=== PATIENT | female | born 1990 | race American Indian/Alaskan Native ===

== ENCOUNTER 2018-04-14 08:01 | Outpatient (CLI) | payer BC ==
--- NOTE | 2018-04-14 09:22 | Ultrasound Report ---
Right breast ultrasound: Periodic bloody nipple discharge for one year. Imaging of the retroareolar region demonstrates a 6 mm circumscribed echolucency at 3:00. No evidence of enlarged ducts. In the 5:00 location 4 cm from the nipple there is a heterogeneously hypoechoic circumscribed nodule measuring 6.1 mm which is slightly elongated. There is some question of mild shadowing. No internal flow with color imaging. No other findings. Impression: 1. Generally benign-appearing solid nodule in the 5:00 location. The mild shadowing does raise concern. 2. No definable source of bloody discharge. Recommendation: 1. Consider ultrasound-guided biopsy of solid nodule. Otherwise, six-month followup. 2. Ductogram if blood can be confidently expressed. Otherwise, MR scan may be helpful. If MR scan is performed the biopsy can be delayed following evaluation from this procedure. BI-RADS CATEGORY: 4 = Suspicious ACR BI-RADS MAMMOGRAPHIC CODES: 0 = Needs additional imaging evaluation; 1 = Negative; 2 = Benign; 3 = Probably benign; 4 = Suspicious; 5 = Malignant; 6 = Known biopsy-proven malignancy COMMENT: 1. Dense breast tissue, i.e., adenosis, fibrocystic changes, etc., may obscure an underlying neoplasm. 2. Approximately 10% of cancers are not detected with mammography. 3. A negative mammography report should not delay biopsy if a clinically suspicious mass is present.
== END 2018-04-14 08:02 | disposition home or self-care (01) ==
LOC: SPVWC 08:01
PROVIDERS: ATTEND Surgery
DX: N63.14 Unspecified lump in the right breast, lower inner quadrant (principal); Z80.3 Family history of malignant neoplasm of breast

== ENCOUNTER 2018-04-26 08:03 | Outpatient (CLI) | payer BC ==
--- NOTE | 2018-04-26 11:21 | Mammography Report ---
RIGHT DIGITAL DIAGNOSTIC MAMMOGRAM: 04/26/18 08:03:00 CLINICAL: For clip placement immediately status post ultrasound biopsy. COMPARISON:03/23/18 FINDINGS: A biopsy clip is now identified at 5 o'clock and correlates with the location of the mass identified by ultrasound and MRI. IMPRESSION: Concordant clip placement status post ultrasound biopsy. BI-RADS CATEGORY: 4--Suspicious Pathology pending.
--- NOTE | 2018-04-26 13:21 | Ultrasound Report ---
ULTRASOUND GUIDED NEEDLE CORE BIOPSY RIGHT BREAST WITH CLIP PLACEMENT: 04/26/18 CLINICAL: Right breast mass at 5 o'clock 4 cm from the nipple. The mass correlates with the mass identified on MRI. COMPARISON :04/14/18 right breast ultrasound and 04/04/18 MRI breast FINDINGS: The procedure was explained to the patient and informed consent was obtained. Ultrasound demonstrated the previously described mass. I marked the breast with a felt tip marker and a time out was called. The skin was prepped with Betadine and anesthetized with 1% lidocaine. Needle core biopsy was performed through a tiny dermatotomy using ultrasound guidance, 2% lidocaine with epinephrine for deep anesthesia and a 14-gauge Achieve biopsy device. 3 cores were obtained and placed in formalin. A clip was deployed within the mass. The patient tolerated the procedure well and there were no apparent complications. Hemostasis was achieved with minimal pressure and a sterile dressing was applied. A two view mammogram demonstrated satisfactory placement of the clip. She left the department in good condition and was given instructions for wound care and followup. IMPRESSION: Uncomplicated ultrasound guided needle core biopsy with clip placement right breast.
== END 2018-04-26 08:04 | disposition home or self-care (01) ==
LOC: SPVWC 08:03
PROVIDERS: ATTEND Surgery
DX: D24.1 Benign neoplasm of right breast (principal)
CPT/HCPCS: 19083; 77065; 88305; A4648

== ENCOUNTER 2019-04-09 09:52 | Outpatient (CLI) | payer BC ==
--- NOTE | 2019-04-09 12:17 | Mammography Report ---
BILATERAL DIGITAL DIAGNOSTIC MAMMOGRAM WITH CAD -- 04/09/2019 RIGHT COMPLETE BREAST ULTRASOUND INDICATION: Right bloody nipple discharge for 3 weeks. She has a history of bilateral bloody nipple d ischarge. MRI on 04/04/2008 demonstrated a lesion at 4:00 in the right breast which was subsequently b iopsied and proven to be a benign fibroadenoma. TECHNIQUE: Digital bilateral mammographic imaging was performed. Complete ultrasound of all four (4) quadrants was performed. This examination was interpreted with the benefit of Computer-Aided Detecti on (CAD) analysis. COMPARISON: 03/23/2018 FINDINGS: Breast Density: The breasts are heterogeneously dense, which may obscure small masses. MAMMOGRAPHIC FINDINGS: There is no evidence of dominant mass, suspicious calcifications or architectu ral distortion in either breast. A right lower inner biopsy clip correlates with the site of the joshua gn fibroadenoma but there is no mammographic mass. ULTRASOUND FINDINGS: Complete sonographic evaluation of all 4 quadrants and retroareolar region was p erformed. Normal fibroglandular structures with no mass, cyst or shadowing. A HydroMark biopsy clip at 3:00 correlates with the benign biopsy. Moderate right retroareolar duct ectasia but no intraduct al mass identified. IMPRESSION: Negative mammogram and negative right breast ultrasound. Recommend bilateral MRI. Follow up recommendation: Breast MRI BI-RADS Category 1: Negative. A "normal" or negative report should not discourage follow up or biopsy of a clinically significant f inding. A written summary of these findings will be mailed to the patient. The patient will be entered into a mammography reporting system which will generate a reminder letter for the patient's next appointmen t at the appropriate interval. According to the [employer], yearly mammograms are recommended starting at age 40 and continuing as long as a woman is in good health. Breast MRI is recommended for women with an anna roximately 20-25% or greater lifetime risk of breast cancer, including women with a strong family his tory of breast or ovarian cancer and women who have been treated for Hodgkin's disease. Signer Name: Raymond Trejo MD Signed: 04/09/2019 12:12 PM Workstation Name: [id number]
== END 2019-04-09 09:53 | disposition home or self-care (01) ==
LOC: SPVWC 09:52
PROVIDERS: ATTEND Surgery
DX: N64.52 Nipple discharge (principal)
CPT/HCPCS: 77066

== ENCOUNTER 2019-04-25 08:12 | Outpatient (CLI) | payer BC ==
--- NOTE | 2019-04-26 10:32 | Magnetic Resonance Report ---
BILATERAL BREAST MR WITHOUT AND WITH GADOLINIUM INDICATION: Family history of breast cancer and history of chronic bilateral intermittent spontaneou s bloody nipple discharge. She had an ultrasound-guided needle biopsy of a benign fibroadenoma of the right breast at 3:00 04/26/2018. COMPARISONS: 04/04/2018 MRI and bilateral mammogram and right breast ultrasound 04/09/2019 TECHNIQUE: Axial 1.0 mm T1 without, axial high-resolution 2.0 mm T2 and axial 1.0 mm dynamic vibrant high-resolution postcontrast T1 fat saturation sequences on a 1.5 Malou magnet. The examination was p erformed with an 8-channel dedicated Sentinelle breast coil. Post-processing with CAD and subtraction was performed on an Schvey workstation. 17.0 cc of MultiHance was injected without incident for the c ontrast portion of the exam. Consent was obtained prior to the administration of the contrast. FINDINGS: RIGHT BREAST: Moderate background parenchymal enhancement. No mass or suspicious enhancement. No susp icious lymph nodes. A small segment of subareolar ducts at 11:00 are hyperintense on the T1 fat sat sequence but there is no suspicious enhancement associated with the ducts. LEFT BREAST: Moderate background parenchymal enhancement. No mass or suspicious enhancement. No suspi cious lymph nodes. IMPRESSION: No suspicious finding. The MRI findings in the right breast at 11:00 subareolar are nonsp ecific but probably benign and likely represent proteinaceous secretions or possibly a small amount o f blood within ducts. Recommend short-term follow-up with mammography and ultrasound in 6 months. BI-RADS Category 3: Probably benign Signer Name: Raymond Trejo MD Signed: 04/26/2019 10:27 AM Workstation Name: [id number]
== END 2019-04-25 08:13 | disposition home or self-care (01) ==
LOC: SPVIMAG 08:12
PROVIDERS: ATTEND Surgery
DX: N64.52 Nipple discharge (principal); N60.81 Other benign mammary dysplasias of right breast
CPT/HCPCS: A9577; C8908; 77049

== ENCOUNTER 2019-06-11 05:52 | Day surgery (SDC) | payer BC ==
[~2019-06-11 05:52] MED LIST: BUPIVACAINE/PF (0.25%) 2.5 MG/ML 30 ML VIAL INFILTRATI ONE; LIDOCAINE (1%) 10 MG/1 ML VIAL 20 ML MDV INFILTRATI ONE; WATER FOR IRRIG STERILE 1,000 ML BOTTLE IR ONE
[2019-06-11] MEDS ORDERED: BACTERIOSTATIC SODIUM CHLORIDE 0.9% 30 ML VIAL INFILTRATI ONE (06:46)
[2019-06-11] MEDS ORDERED: LACTATED RINGERS 1,000 ML ONE (06:46)
[2019-06-11] MEDS ORDERED: VANCOMYCIN/NS 1 GM/250 ML 1 GM/250 ML BAG IV NR (07:00)
--- NOTE | 2019-06-11 07:19 | Anesthesia Day of Surgery ---
Anesthesia Day of Surgery - Day of Surgery Patient Examined: Yes Patient H&P Reviewed: Yes Patient is NPO: Yes
--- NOTE | 2019-06-11 07:21 | Anesthesia Consultation ---
Anesthesia Consult and Med Hx Date of service: 06/11/19 - Airway Anesthetic Teeth Evaluation: Good ROM Head & Neck: Adequate Mental/Hyoid Distance: Adequate Mallampati Class: Class II Intubation Access Assessment: Good - Pre-Operative Health Status ASA Pre-Surgery Classification: ASA1 Proposed Anesthetic Plan: General - Pulmonary Hx Smoking: No Hx Asthma: No SOB: No - Cardiovascular System Hx Hypertension: No - Gastrointestinal Hx Ulcer: No - Additional Comments Anesthesia Medical History Comments: Here [id number] for similar procedure
[2019-06-11] MEDS ORDERED: LIDOCAINE (1%) 10 MG/1 ML VIAL 20 ML MDV ONE (07:28)
[2019-06-11] MEDS ORDERED: BUPIVACAINE/PF (0.25%) 2.5 MG/ML 30 ML VIAL INFILTRATI ONE (07:28)
[2019-06-11] MEDS ORDERED: LACTATED RINGERS 1,000 ML IV SCH (07:37)
[2019-06-11] MEDS ORDERED: dexAMETHasone 20 MG/5 ML VIAL ONE (07:49)
[2019-06-11] MEDS ORDERED: fentaNYL 100 MCG/2 ML INJ ONE (07:49)
[2019-06-11] MEDS ORDERED: ONDANSETRON 4 MG/2 ML INJ ONE (07:49)
[2019-06-11] MEDS ORDERED: PROPOFOL 200 MG/20 ML VIAL IV ONE (07:49)
[2019-06-11] MEDS ORDERED: LIDOCAINE MPF (2%) 20 MG/1 ML VIAL 5 ML ONE (07:49)
[2019-06-11] MEDS ORDERED: KETAMINE/STERILE WATER 50 MG/ML SYRINGE ONE (08:28)
--- NOTE | 2019-06-11 09:44 | Operative Report ---
Operative Report Operative Report: Operative Report: June 11, 2019 Preoperative diagnosis: Right breast spontaneous bloody nipple discharge Postoperative diagnosis: Same Procedure: Right nipple terminal duct excisional biopsy Surgeon: Macrina Sloan MD Anesthesia: General Findings: Bloody nipple discharge with duct identified using lacrimal probe and dissected free Complications: None Drains: None Disposition: PACU Indications for operative procedure: This is a 29-year-old lady high risk for breast cancer given family history and personal history of ADH with new onset spontaneous right bloody nipple discharge. Recommendations were to proceed with right nipple terminal duct excisional biopsy to rule out malignancy. Recent diagnostic mammogram and breast ultrasound and breast MRI with negative findings. She underwent right nipple terminal duct excisional biopsy in April 2018 for spontaneous bloody nipple discharge and findings of an intraductal papilloma negative for atypia and a small focus of ADH. Patient wished to proceed with the above procedure. Procedure detail: The patient was taken to the operating room. She was laid supine. General anesthesia was administered. The right breast was prepped and draped in the normal sterile operative fashion. Timeout was performed. Bloody nipple discharge was noted from the nipple, around the 2:00 position. Lacrimal probe was inserted into the duct of concern. A periareolar incision was made with 15 blade knife through the prior incision with dissection taken down to the subcutaneous tissue. Scar tissue was noted from prior incision. First began dissection of the breast tissue from the superior flap of the nipple with diss ection taken down 3-4 cm. The duct of concern was appropriately identified and dissected free with the aid of Bovie cautery, duct of concern was identified with the lacrimal probe present. Hemostasis was noted. The specimen was appropriately marked and then sent to pathology. The breast cavity was anesthetized with 1% lidocaine mixed with quarter percent Marcaine. The deep breast tissues were approximated and closed using interrupted 3-0 Vicryl. The subcutaneous tissues were approximated and closed using interrupted 3-0 Vicryl followed by closing of the skin with a running 4-0 Monocryl followed by skin affix. She tolerated surgery very well and was awakened from anesthesia and then transferred to PACU in good condition.
--- NOTE | 2019-06-11 09:48 | Short Stay Summary ---
Short Stay Documentation Date of service: 06/11/19 - History H&P: obtained from office - Allergies and Medications Current Medications: Allergies penicillin G Adverse Reaction (Verified 05/22/18 06:47) Unknown PENICILLIN G BENZATHINE tramadol Adverse Reaction (Verified 06/11/19 07:12) Unknown PT STATES SHE HAD CHEST PAIN BENZATHINE Adverse Reaction (Uncoded 05/22/18 06:48) Unknown Home Medications Medication Instructions Recorded Confirmed Last Taken Type Norethindrone-Ethinyl Estrad 1 tab PO DAILY 05/22/18 06/11/19 1 Month Ago History [Pirmella 1-35-28 Tablet] ~05/11/19 diphenhydrAMINE [Benadryl CAP] 25 mg PO PRN 05/22/18 06/11/19 06/10/19 History HYDROcodone/APAP 5-325 [Clark 1 each PO Q6HR PRN #20 tablet 06/11/19 Unknown Rx 5/325] Active Medications Vancomycin HCl (Vancomycin/Ns 1 Gm/250 Ml) 1 gm in 250 mls @ 167.007 mls/hr IV PREOP NR; Protocol Stop: 06/12/19 23:45 Last Admin: 06/11/19 07:39 Dose: 167.007 mls/hr Documented by: Lactated Ringer's (Lactated Ringers) 1,000 mls @ 100 mls/hr IV DIRECT JAS - Brief post op/procedure progress note Date of procedure: 06/11/19 Pre-op diagnosis: Right bloody nipple discharge Post-op diagnosis: same Procedure: Right nipple terminal duct excisional biopsy Anesthesia: GETA Findings: right duct identified with terminal duct excisional biopsy performed Surgeon: SONAL HERRING Estimated blood loss: minimal Pathology: list (terminal duct excisional biopsy) Specimen disposition: to lab Condition: stable - Disposition Condition at discharge: Good Disposition: DC-01 TO HOME OR SELFCARE Short Stay Discharge Plan Activity: other (no heavy lifting) Diet: regular Wound: keep clean and dry (may shower in 48 hours) Follow up with: DANTE GONZÁLES MD [Primary Care Provider] - 7 Days SONAL HERRING MD [Staff Physician] - 7 Days Prescriptions: HYDROcodone/APAP 5-325 [Clark 5/325] 1 each PO Q6HR PRN #20 tablet PRN Reason: Pain
[2019-06-11 10:08] VITALS: BP 126/85
--- NOTE | 2019-06-11 13:36 | Post Anesthesia Evaluation ---
- Post Anesthesia Evaluation Patient Participated: Yes Airway Patent: Yes Stable Respiratory Function: Yes Nausea/Vomiting: No Temp > 96.8F: Yes Pain Manageable: Yes Adequeate Hydration: Yes Anesthesia Complications: No Block Receding Appropriately: Not Applicable Patient on Ventilator: No
== END 2019-06-11 10:40 | disposition home or self-care (01) ==
LOC: OR 05:52
PROVIDERS: ATTEND Surgery
DX: N64.52 Nipple discharge (principal); D05.11 Intraductal carcinoma in situ of right breast; Z88.0 Allergy status to penicillin; Z79.899 Other long term (current) drug therapy; Z80.8 Family history of malignant neoplasm of other organs or systems; Z98.890 Other specified postprocedural states; Z88.8 Allergy status to other drugs, medicaments and biological substances
CPT/HCPCS: 19110; 88307; 88341; 88342; J1100; J2405; J2704; J3010; J3370; J7120

== ENCOUNTER 2019-10-17 05:51 | Observation (INO) | payer BC ==
[2019-10-16 10:23] LABS: Basophils # (Auto) 0.1 K/mm3 (0.0-0.1); Eosinophils # (Auto) 0.3 K/mm3 (0.0-0.4); Eosinophils % (Auto) 5.6 % (0.0-4.3); Hematocrit 35.8 % (30.3-42.9); Hemoglobin 11.9 gm/dl (10.1-14.3); Lymphocytes # (Auto) 1.8 K/mm3 (1.2-5.4); Lymphocytes % (Auto) 30.4 % (13.4-35.0); Mean Corpuscular HGB Conc 33 % (30-34); Mean Corpuscular Volume 82 fl (79-97); Monocytes # (Auto) 0.3 K/mm3 (0.0-0.8); Monocytes % (Auto) 5.6 % (0.0-7.3); Platelet Count 228 K/mm3 (140-440); Red Blood Count 4.39 M/mm3 (3.65-5.03)
--- NOTE | 2019-10-16 10:36 | Anesthesia Consultation ---
Anesthesia Consult and Med Hx Date of service: 10/16/19 - Airway Anesthetic Teeth Evaluation: Good ROM Head & Neck: Adequate Mental/Hyoid Distance: Adequate Mallampati Class: Class I Intubation Access Assessment: Good - Pre-Operative Health Status ASA Pre-Surgery Classification: ASA2 Proposed Anesthetic Plan: General Nerve Block: PEC - Pulmonary Hx Smoking: No Hx Asthma: No SOB: No Hx Sleep Apnea: Yes (Probable-not tested) - Cardiovascular System Hx Hypertension: No (States she can climb two flights of stairs) - Central Nervous System Hx Psychiatric Problems: No - Gastrointestinal Hx Ulcer: No Hx Gastroesophageal Reflux Disease: Yes (Occasional-dietary) - Hematic Hx Sickle Cell Disease: No - Other Systems Hx Alcohol Use: Yes (OCCA) Hx Substance Use: No Hx Cancer: Yes Hx Obesity: Yes (BMI 32)
[~2019-10-17 05:51] MED LIST changes: -BUPIVACAINE/PF (0.25%) 2.5 MG/ML 30 ML VIAL INFILTRATI ONE; -LIDOCAINE (1%) 10 MG/1 ML VIAL 20 ML MDV INFILTRATI ONE; +VANCOMYCIN/NS 1 GM/250 ML 1 GM/250 ML BAG IV NR; -WATER FOR IRRIG STERILE 1,000 ML BOTTLE IR ONE; +WATER FOR IRRIG STERILE 1,500 ML BOTTLE IR ONE
[2019-10-17] MEDS ORDERED: MIDAZOLAM 2 MG/2 ML INJ IV NR (06:00)
[2019-10-17] MEDS ORDERED: ACETAMINOPHEN 500 MG TAB PO NR (06:00)
[2019-10-17] MEDS ORDERED: GABAPENTIN 300 MG CAP PO NR (06:00)
[2019-10-17] MEDS ORDERED: fentaNYL 100 MCG/2 ML INJ IV NR (06:00)
[2019-10-17] MEDS ORDERED: CELECOXIB 200 MG CAP PO NR (06:00)
[2019-10-17] MEDS ORDERED: MAGNESIUM OXIDE 400 MG TAB PO NR (06:00)
[2019-10-17] MEDS ORDERED: LACTATED RINGERS 1,000 ML IV SCH ×2 (06:00→15:00)
[2019-10-17] MEDS ORDERED: BUPIVACAINE-EPINEPHRINE/PF 0.5%-1:200,000 (30 ML) VIAL INFILTRATI ONE (07:02)
[2019-10-17] MEDS ORDERED: METHYLENE BLUE 50 MG/10 ML AMP ONE (07:18)
[2019-10-17] MEDS ORDERED: SODIUM CHLORIDE P/F VIAL 10 ML 10 ML ONE (07:19)
[2019-10-17] MEDS ORDERED: fentaNYL 100 MCG/2 ML INJ ONE (07:23)
[2019-10-17] MEDS ORDERED: LIDOCAINE MPF (2%) 20 MG/1 ML VIAL 5 ML ONE (07:23)
[2019-10-17] MEDS ORDERED: KETAMINE/STERILE WATER 50 MG/ML SYRINGE ONE (07:23)
[2019-10-17] MEDS ORDERED: dexAMETHasone 20 MG/5 ML VIAL ONE (07:23)
[2019-10-17] MEDS ORDERED: ROCURONIUM 50 MG/5 ML INJ IV ONE (07:23)
[2019-10-17] MEDS ORDERED: ONDANSETRON 4 MG/2 ML INJ ONE (07:23)
[2019-10-17] MEDS ORDERED: propofoL 200 MG/20 ML VIAL IV ONE (07:23)
[2019-10-17] MEDS ORDERED: SUCCINYLCHOLINE CHLORIDE 200 MG/10 ML INJ MDV ONE (07:23)
--- NOTE | 2019-10-17 07:24 | Anesthesia Day of Surgery ---
Anesthesia Day of Surgery - Day of Surgery Patient Examined: Yes Patient H&P Reviewed: Yes Patient is NPO: Yes
[2019-10-17] MEDS ORDERED: ONDANSETRON 4 MG/2 ML INJ IV PRN ×2 (07:30→15:00)
[2019-10-17] MEDS ORDERED: HYDROmorphone 1 MG/1 ML INJ IV PRN (07:30)
[2019-10-17] MEDS ORDERED: SODIUM CHLORIDE 0.9% P/F 10 ML VIAL INFILTRATI ONE (08:01)
[2019-10-17] MEDS ORDERED: METHYLENE BLUE 50 MG/10 ML AMP IV ONE (08:01)
[2019-10-17] MEDS ORDERED: HYDROmorphone 1 MG/1 ML INJ ONE (08:35)
[2019-10-17] MEDS ORDERED: WATER FOR IRRIG STERILE 1,500 ML BOTTLE IR ONE (09:52)
[2019-10-17] MEDS ORDERED: LACTATED RINGERS 1,000 ML ONE (11:50)
--- NOTE | 2019-10-17 12:54 | Mammography Report ---
SPECIMEN RADIOGRAPH INDICATION: POST EXC BX. COMPARISON: 04/25/2019 MRI FINDINGS: Single biopsy clip is identified at the margin of the whole breast specimen. No distinct mass. IMPRESSION: 1. Excision of the known cancer. Signer Name: Raymond Trejo MD Signed: 10/17/2019 12:49 PM Workstation Name: [id number]
--- NOTE | 2019-10-17 14:05 | Short Stay Summary ---
Short Stay Documentation Date of service: 10/17/19 - History H&P: obtained from office - Allergies and Medications Current Medications: Allergies penicillin G Adverse Reaction (Verified 10/15/19 16:17) Hives PENICILLIN G BENZATHINE tramadol Adverse Reaction (Verified 10/15/19 16:17) Chest Pain PT STATES SHE HAD CHEST PAIN Home Medications Medication Instructions Recorded Confirmed Last Taken Type Levocetirizine Dihydrochloride 5 mg PO DAILY 10/15/19 10/15/19 Unknown History [Xyzal] Multivit-Minerals/Folic Acid 200 mcg PO DAILY 10/15/19 10/15/19 Unknown History [Adult Multi Gummies] Active Medications Acetaminophen (Tylenol) 1,000 mg PO ONCE NR Stop: 10/17/19 23:59 Last Admin: 10/17/19 06:37 Dose: 1,000 mg Documented by: Celecoxib (Celebrex) 400 mg PO PREOP NR Stop: 10/17/19 23:59 Last Admin: 10/17/19 06:36 Dose: 400 mg Documented by: Fentanyl (Sublimaze) 100 mcg IV ONCE NR Stop: 10/17/19 23:59 Last Admin: 10/17/19 07:05 Dose: 100 mcg Documented by: Gabapentin (Gabapentin) 600 mg PO PREOP NR Stop: 10/17/19 23:59 Last Admin: 10/17/19 06:36 Dose: 600 mg Documented by: Hydromorphone HCl (Dilaudid) 0.5 mg IV Q10MIN PRN PRN Reason: Pain , Severe (7-10) Stop: 10/17/19 17:00 Vancomycin HCl (Vancomycin/Ns 1 Gm/250 Ml) 1 gm in 250 mls @ 166.667 mls/hr IV PREOP NR; Protocol Stop: 10/17/19 23:00 Last Admin: 10/17/19 07:05 Dose: 166.667 mls/hr Documented by: Lactated Ringer's (Lactated Ringers) 1,000 mls @ 125 mls/hr IV DIRECT JAS Last Admin: 10/17/19 06:35 Dose: 125 mls/hr Documented by: Magnesium Oxide (Mag-Ox) 400 mg PO ONCE NR Stop: 10/17/19 23:59 Last Admin: 10/17/19 06:36 Dose: 400 mg Documented by: Midazolam HCl (Versed) 2 mg IV PREOP NR Stop: 10/17/19 23:59 Last Admin: 10/17/19 07:05 Dose: 2 mg Documented by: Ondansetron HCl (Zofran) 4 mg IV ONCE PRN PRN Reason: Nausea And Vomiting Stop: 10/17/19 17:00 - Brief post op/procedure progress note Date of procedure: 10/17/19 Pre-op diagnosis: Right breast cancer Post-op diagnosis: same Procedure: Left total mastectomy; right total mastectomy with SLNB Anesthesia: GETA Findings: x2 SLNs and neg for malignancy Surgeon: SONAL HERRING Estimated blood loss: other (200 cc) Pathology: list (digna mastectomy; x2 SLNs) Specimen disposition: to lab Condition: stable - Disposition Condition at discharge: Good Disposition: DC/TX-02 SHRT-TRM GEN HOSP IP Short Stay Discharge Plan Activity: other (no heavy lifting) Diet: regular Wound: keep clean and dry Follow up with: PRIMARY MD TAWNY [Primary Care Provider] - 7 Days SONAL HERRING MD [Staff Physician] - 7 Days
[2019-10-17] MEDS ORDERED: MORPHINE 2 MG/1 ML INJ IV PRN (14:07)
[2019-10-17] MEDS ORDERED: diphenhydrAMINE 25 MG CAP PO PRN (15:00)
[2019-10-17] MEDS ORDERED: oxyCODONE /ACETAMINOPHEN 5-325MG TAB PO PRN (15:00)
[2019-10-17] MEDS ORDERED: ACETAMINOPHEN 325 MG TAB PO PRN (15:00)
[2019-10-17] MEDS ORDERED: METOCLOPRAMIDE 10 MG TAB PO PRN (15:00)
--- NOTE | 2019-10-17 20:23 | Operative Report ---
Operative Report Operative Report: Operative Report: Date of Service: October 17, 2019 Preoperative diagnosis: Right breast cancer of the NAC Postoperative diagnosis: Same Procedure: Right total mastectomy with sentinel lymph node biopsy and left total mastectomy Surgeon: Macrina Sloan M.D. Fairing Man: Dr. Lynne Anesthesia: Gen. Findings: Right breast clip present within right total mastectomy. x1 right breast clip present within right total mastectomy. 2 SLNs identified and negative for malignancy on frozen section of pathology. Complications: None Drains: Bilateral 19 [place] CHETAN drains Estimated blood loss: 200 cc Disposition: PACU in good condition Indications for operative procedure: This is a 29-year-old lady with newly diagnosed stage 0 right breast cancer of the upper outer quadrant; [id number] ER positive. Recommendations were to proceed with a right total mastectomy versus central mastectomy given DCIS from recent terminal duct exicisional biops; did not recommend saving the nipple given dutal involvement. 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 She understood the risk of possible breast cancer disease progression. Delayed PRS recommended given COVID-19 crisis. She wised to proceed with a right total total mastectomy and prophylactic left total mastectomy. She wished to proceed with the above procedure. Procedure in detail: The patient was taken to the operating room and was placed supine. Gen. anesthesia was administered. The right nipple was injected with radioisotope and 1 cc of methylene blue. Bilateral chest and axillas were prepped and draped in the normal sterile operative fashion. Timeout was performed. Typical mastectomy incision markings were made. Attention was taken toward the left breast first. First began raising of the superior flap to the level of the clavicle superiorly and posteriorly to the pectoralis muscle. Followed by raising of the medial flap to the level of the sternum and posteriorly to the pectoralis muscle. Followed by raising of the lateral flap to the level of the latissimus dorsi muscle and taken down posteriorly. Followed by raising of the inferior flap to the level of the inframammary fold taken posterior to the pectoralis muscle. The mastectomy/breast was removed from the pectoralis muscle without incident. The specimen was appropriately marked and sent to and pathology. Chest wall cavity was irrigated and suctioned. CHETAN drain placed. The subcutaneous tissues were approximated and closed using interrupted 3-0 Vicryl followed by running 4-0 Monocryl and dermabond. Attention was taken towards the right breast. A gamma probe was inserted into the axilla to identify the sentinel lymph node location with uptake noted. A skin incision was made with a 10 blade knife and dissection taken down to the subcutaneous tissues. First began raising of the superior flap to the level of the clavicle superiorly and posteriorly to the pectoralis muscle. Followed by raising of the medial flap to the level of the sternum and posteriorly to the pectoralis muscle. Followed by raising of the lateral flap to the level of the latissimus dorsi muscle and taken down posteriorly. The gamma probe was inserted into the axilla, the axillary fascia was opened and 2 SLNs were identified that were dissected free and sent to pathology. x2 SLNs that were sent to pathology with findings negative for malignancy noted on frozen section. Then proceeded with raising of the inferior flap to the level of the inframammary fold taken posterior to the pectoralis muscle. The mastectomy/breast was removed from the pectoralis muscle without incident. The specimen was appropriately marked and sent to radiology with findings of x1 breast clips present (history of biopsied fibroadenoma) and sent to pathology. Chest wall cavity was irrigated and suctioned. Hemostasis was obtained. 19 Fr CHETAN drain placed. The subcutaneous tissues were approximated and closed using interrupted 3-0 Vicryl followed by a running 4-0 Monocryl and dermabond. She was extubated and transported to PACU in good condition.
[2019-10-17] MEDS ORDERED: DOCUSATE SODIUM 100 MG CAP PO SCH (22:00)
--- NOTE | 2019-10-18 07:39 | Progress Note ---
Assessment and Plan This is a 29 year old lady with Stage 0 right breast cancer; POD#1 right total mastectomy with SLNB and left total mastectomy. 1. Pain in good control. 2. Bilateral chest incisions healing well; no hematoma. 3. CHETAN drain education. 4. OOB to hallway. 5. D/C planning for today. Subjective Date of service: 10/18/19 Principal diagnosis: Right breast cancer Interval history: POD#1 right total mastectomy with SLNB and left total mastectomy Objective - Constitutional Vitals: Vital Signs - 12hr 10/17/19 10/17/19 10/17/19 19:41 21:38 22:00 Temperature 98.2 F Pulse Rate 90 Pulse Rate [ 80 Right Radial] Respiratory 20 18 18 Rate Blood Pressure 117/62 O2 Sat by Pulse 98 Oximetry 10/17/19 10/18/19 10/18/19 22:38 00:30 04:39 Temperature 98.2 F 99.5 F Pulse Rate 85 89 Pulse Rate [ Right Radial] Respiratory 18 20 20 Rate Blood Pressure 111/58 119/48 O2 Sat by Pulse 98 100 Oximetry 10/18/19 10/18/19 04:47 05:47 Temperature Pulse Rate Pulse Rate [ Right Radial] Respiratory 18 18 Rate Blood Pressure O2 Sat by Pulse Oximetry General appearance: Present: no acute distress - EENT Eyes: PERRL, EOM intact ENT: hearing intact Ears: bilateral: normal - Neck Neck: supple, normal ROM - Respiratory Respiratory effort: normal - Breasts Breasts: other (bilateral chest incisions healing well; no hematoma; skin well perfused; CHETAN drains to bulb suction; incisions clean, dry and intact) - Cardiovascular Rhythm: regular Extremities: no ischemia, pulses intact, pulses symmetrical, No edema, normal temperature, normal color, Full ROM - Gastrointestinal General gastrointestinal: Present: soft, non-tender, non-distended Rectal Exam: deferred - Genitourinary Female genitourinary: deferred - Musculoskeletal Musculoskeletal: strength equal bilaterally - Neurologic Neurologic: moves all extremities - Psychiatric Psychiatric: appropriate mood/affect, intact judgment & insight, memory intact, cooperative - Labs CBC & Chem 7: 10/16/19 09:30 Medications & Allergies - Medications Allergies/Adverse Reactions: Allergies penicillin G Adverse Reaction (Verified 10/15/19 16:17) Hives PENICILLIN G BENZATHINE tramadol Adverse Reaction (Verified 10/15/19 16:17) Chest Pain PT STATES SHE HAD CHEST PAIN Home Medications: Home Medications Medication Instructions Recorded Confirmed Last Taken Type Levocetirizine Dihydrochloride 5 mg PO DAILY 10/15/19 10/15/19 Unknown History [Xyzal] Multivit-Minerals/Folic Acid 200 mcg PO DAILY 10/15/19 10/15/19 Unknown History [Adult Multi Gummies] Active Medications: Generic Name Dose Route Start Last Admin Trade Name Freq PRN Reason Stop Dose Admin Acetaminophen 650 mg 10/17/19 15:00 10/17/19 21:38 Tylenol PO 650 mg Q6H PRN Administration Pain MILD(1-3)/Fever >100.5/NICHOLS Diphenhydramine HCl 25 mg 10/17/19 15:00 Benadryl PO Q8H PRN Itching Docusate Sodium 100 mg 10/17/19 22:00 10/17/19 21:34 Colace PO 100 mg BID JAS Administration Lactated Ringer's 1,000 mls @ 125 mls/hr 10/17/19 15:00 10/18/19 01:32 Lactated Ringers IV 125 mls/hr DIRECT JAS Administration Metoclopramide HCl 10 mg 10/17/19 15:00 10/17/19 16:10 Reglan PO 10 mg Q6H PRN Administration Nausea And Vomiting Morphine Sulfate 2 mg 10/17/19 14:07 Morphine IV Q4H PRN Pain, Moderate (4-6) Ondansetron HCl 4 mg 10/17/19 15:00 Zofran IV Q8H PRN N/V unrelieved by Reglan Oxycodone/Acetaminophen 2 tab 10/17/19 15:00 10/18/19 04:47 Percocet 5/325 PO 2 tab Q6H PRN Administration Pain, Moderate (4-6) Sodium Chloride 10 ml 10/17/19 15:00 Sodium Chloride Flush Syringe 10 Ml IV PRN PRN LINE FLUSH
[2019-10-18 08:46] VITALS: BP 125/70
== END 2019-10-18 09:50 | disposition home or self-care (01) ==
LOC: OR 05:51 → OB 14:05
PROVIDERS: ADMIT Surgery; ATTEND Surgery
DX: C50.011 Malignant neoplasm of nipple and areola, right female breast (principal); Z88.0 Allergy status to penicillin; Z88.6 Allergy status to analgesic agent
CPT/HCPCS: 19307; 36415; 64450; 76098; 78800; 84703; 85025; 88307; 88331; 88333; 88342; 96365; 96375; A9541; G0378; J0330; J1100; J1170; J2250; J2405; J2704; J3010; J3370; J7120; Q9968